=== PATIENT | male | born 1980 | race Caucasian/White ===

== ENCOUNTER 2018-07-01 14:39 | Emergency (ER) | payer SELFPAY ==
[2018-07-01 15:03] VITALS: BP 143/104
[2018-07-01] MEDS ORDERED: ACETAMINOPHEN 325 MG TABLET PO STA (15:57)
[2018-07-01 16:07] LABS: BASOPHILS % (AUTO) 0.5 %; EOSINOPHILS % (AUTO) 0.6 %; HGB - HEMOGLOBIN 16.4 g/dL (14.0-18.0); LYMPHOCYTES # (AUTO) 2.4 10^3/uL (1.5-3.5); LYMPHOCYTES % (AUTO) 35.9 %; MEAN CORPUSCULAR HEMOGLOBIN 31.5 pg (27.0-31.0); MEAN CORPUSCULAR HGB CONC 33.9 g/dL (32.0-36.0); MEAN CORPUSCULAR VOLUME 92.7 fL (80.0-94.0); MEAN PLATELET VOLUME 8.1 fL (7.4-11.4); MONOCYTES # (AUTO) 0.5 10^3/uL (0.0-1.0); MONOCYTES % (AUTO) 7.9 %; NEUTROPHILS # (AUTO) 3.7 10^3/uL (1.5-6.6); NEUTROPHILS % (AUTO) 55.1 %; PLT - PLATELET COUNT 353 10^3/uL (130-450); RED BLOOD COUNT 5.22 10^6/uL (4.70-6.10); RED CELL DISTRIBUTION WIDTH 13.7 % (12.0-15.0); WHITE BLOOD COUNT 6.7 x10^3/uL (4.8-10.8)
[2018-07-01 16:13] LABS: ALBUMIN 4.7 g/dL (3.2-5.5); ALBUMIN/GLOBULIN RATIO 1.1 (1.0-2.2); BILIRUBIN,TOTAL 0.3 mg/dL (0.2-1.0); CREATININE 0.7 mg/dL (0.6-1.2); TOTAL PROTEIN 8.9 g/dL (6.7-8.2)
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
== END 2018-07-01 16:55 | disposition left against medical advice (07) ==
LOC: ED 14:39
DX: Z53.20 Procedure and treatment not carried out because of patient's decision for unspecified reasons (principal); F10.129 Alcohol abuse with intoxication, unspecified; Y90.8 Blood alcohol level of 240 mg/100 ml or more; V59.9XXA Occupant (driver) (passenger) of pick-up truck or van injured in unspecified traffic accident, initial encounter; Y92.410 Unspecified street and highway as the place of occurrence of the external cause; I10 Essential (primary) hypertension; F17.200 Nicotine dependence, unspecified, uncomplicated
CPT/HCPCS: 36415; 70450; 80053; 80320; 83690; 85025; 99283

== ENCOUNTER 2019-01-30 10:38 | Outpatient (CLI) | payer MEDICAID | END 2019-01-30 10:39 | disposition critical access hospital (66) | LOC: EMS 10:38 | PROVIDERS: ATTEND Surgery | DX: R11.2 Nausea with vomiting, unspecified (principal); F41.9 Anxiety disorder, unspecified | CPT/HCPCS: A0425; A0427 ==

== ENCOUNTER 2019-01-30 11:03 | Emergency (ER) | payer MEDICAID ==
[2019-01-30] MEDS ORDERED: LIDOCAINE VISCOUS 2% 15 ML UDC MM STA (12:07)
[2019-01-30] MEDS ORDERED: PANTOPRAZOLE 40 MG TABLET PO STA (12:07)
[2019-01-30] MEDS ORDERED: LORazepam 2 MG/ML VIAL IVP STA (12:07)
[2019-01-30] MEDS ORDERED: MAG HYDROX/AL HYDROX/SIMETH 30 ML UDC PO STA (12:07)
--- NOTE | 2019-01-30 12:10 | ED Physician Documentation ---
History of Present Illness - Stated complaint Stated Complaint: SOA - Chief complaint Chief Complaint: Abd Pain - History obtained from History obtained from: Patient - History of Present Illness Timing: Last night (38-year-old gentleman with history of anxiety, reflux presents with shortness of breath and feeling like he is being choked that started last night during the process of being arrested for DUI. He says he has had these symptoms before he would usually take a Xanax for it, but his meds are in his car which is impounded and he cannot get to it. He denies any chest pain, no cough, no calf pain or pedal edema except for chronic calf ankle pain from a prior pilon fracture. He is also been vomiting because he is out of his Prilosec.) Review of Systems Constitutional: denies: Fever, Chills Nose: denies: Rhinorrhea / runny nose, Congestion Throat: reports: Sore throat Cardiac: denies: Chest pain / pressure, Palpitations Respiratory: reports: Dyspnea. denies: Cough PD PAST MEDICAL HISTORY - Past Medical History Past Medical History: Yes Cardiovascular: Hypertension Neuro: None GI: GERD HEENT: None Psych: Anxiety - Past Surgical History Past Surgical History: Yes Ortho: Other - Present Medications Home Medications: Ambulatory Orders Medication Instructions Recorded Confirmed Alprazolam [Xanax] 0.5 mg PO Q8HR PRN #5 tablet 03/01/16 01/30/19 Alprazolam [Xanax] 0.5 mg PO Q8H PRN #5 tablet 01/30/19 Omeprazole 20 mg PO DAILY 01/30/19 01/30/19 Omeprazole 20 mg PO DAILY #30 capsule. 01/30/19 - Allergies Allergies/Adverse Reactions: Allergies Allergy/AdvReac Type Severity Reaction Status Date / Time No Known Drug Allergies Allergy Verified 01/30/19 11:14 - Social History Does the pt smoke?: Yes Smoking Status: Current every day smoker Does the pt drink ETOH?: Yes Does the pt have substance abuse?: No - Immunizations Immunizations are current?: No Immunizations: TDAP current <10years - POLST Patient has POLST: No PD ED PE NORMAL - Vitals Vital signs reviewed: Yes - General General: Alert and oriented X 3, No acute distress - HEENT HEENT: Pharynx benign (But slightly hoarse voice) - Neck Neck: Supple, no meningeal sign, No bony TTP - Cardiac Cardiac: RRR, No murmur - Respiratory Respiratory: No respiratory distress, Clear bilaterally - Abdomen Abdomen: Non tender - Extremities Extremities: No edema, No calf tenderness / cord - Neuro Neuro: Alert and oriented X 3, Normal speech - Psych Psych: Other (Slightly anxious) Results - Vitals Vitals: Vital Signs - 24 hr 01/30/19 11:05 Temperature 36.8 C Heart Rate 112 H Respiratory 22 Rate Blood Pressure 143/125 H O2 Saturation 100 Oxygen O2 Source Room air PD MEDICAL DECISION MAKING - ED course ED course: This is a young man with anxiety and reflux who presents with an exacerbation of same due to being out of his medications, also some hoarse voice from the vomiting. He is administered a PPI, GI cocktail, and a milligram of Ativan IV. Departure - Departure Disposition: Home, Self Care Clinical Impression: Anxiety Condition: Good Record reviewed to determine appropriate education?: Yes Instructions: ED Panic Attack Prescriptions: Alprazolam [Xanax] 0.5 mg PO Q8H PRN #5 tablet PRN Reason: Anxiety Omeprazole 20 mg PO DAILY #30 capsule. Comments: Call your doctor to arrange a follow-up appointment, make the next available appointment. In the interim, return anytime if worse or if new symptoms develop. Your blood pressure was elevated today on check into the emergency department. This does not mean that you have hypertension, it is a common phenomenon to come to the emergency department and have elevated blood pressure. I recommend that you see your primary care physician within the week to have it rechecked when you are feeling better.
[2019-01-30 12:34] VITALS: BP 174/106
== END 2019-01-30 12:33 | disposition home or self-care (01) ==
LOC: EDUNIT# → ED 11:03
DX: F41.9 Anxiety disorder, unspecified (principal); K21.9 Gastro-esophageal reflux disease without esophagitis; I10 Essential (primary) hypertension; R11.10 Vomiting, unspecified; R49.0 Dysphonia; F17.200 Nicotine dependence, unspecified, uncomplicated
CPT/HCPCS: 96374; 99283; A9270; J2060

== ENCOUNTER 2020-05-10 06:35 | Inpatient (IN) | payer MEDICAID ==
--- NOTE | 2020-05-10 07:28 | ED Physician Documentation ---
PD HPI NVD - Stated complaint Stated Complaint: N/V, BODY ACHES - Chief complaint Chief Complaint: Abd Pain - History of Present Illness Timing - onset: How many days ago (4) Timing - duration: Days (4) Timing - details: Abrupt onset (Onset nausea vomiting and diarrhea 4 days ago. This was quite prominent for a day or 2 and then diarrhea has decreased but nausea and vomiting has continued. Feeling generally weak and muscle cramps and lightheaded, worsening today), Still present Associated symptoms: Abdominal pain (cramping intermittent. No continual pain.), Dizzy. No: Fever Contributing factors: Alcohol use. No: Sick contact, Bad food, Diabetes Improved by: No: Eating, Vomiting Worsened by: Eating Similar symptoms before: Has not had sx before Recently seen: Not recently seen Review of Systems Constitutional: reports: Myalgias (and muscle cramps the past day), Fatigue. denies: Fever Nose: denies: Rhinorrhea / runny nose, Congestion Throat: denies: Sore throat Cardiac: denies: Chest pain / pressure, Palpitations Respiratory: denies: Dyspnea, Cough GI: reports: Abdominal Pain (intermittent cramping, not continuous), Nausea, Vomiting (for 4 days), Diarrhea (most prominent the first 2 days, has decreased but still present.). denies: Hematemesis, Bloody / black stool Skin: denies: Rash, Lesions Musculoskeletal: denies: Neck pain, Back pain Neurologic: reports: Generalized weakness, Confused (feeling slow thinking), Headache (mild). denies: Near syncope PD PAST MEDICAL HISTORY - Past Medical History Past Medical History: Yes Cardiovascular: Hypertension Respiratory: None Neuro: None Endocrine/Autoimmune: None GI: GERD : None HEENT: None Psych: Anxiety Musculoskeletal: None Derm: None - Past Surgical History Past Surgical History: Yes Ortho: Other - Present Medications Home Medications: Ambulatory Orders Medication Instructions Recorded Confirmed Alprazolam [Xanax] 0.5 mg PO Q8HR PRN #5 tablet 03/01/16 01/30/19 Alprazolam [Xanax] 0.5 mg PO Q8H PRN #5 tablet 01/30/19 Omeprazole 20 mg PO DAILY 01/30/19 01/30/19 Omeprazole 20 mg PO DAILY #30 capsule. 01/30/19 - Allergies Allergies/Adverse Reactions: Allergies Allergy/AdvReac Type Severity Reaction Status Date / Time No Known Drug Allergies Allergy Verified 05/10/20 06:47 - Living Situation Living Situation: reports: Alone Living Arrangement: reports: At home - Social History Does the pt smoke?: Yes Smoking Status: Current every day smoker Does the pt drink ETOH?: Yes ETOH Use: Other (daily alcohol use, but had been "cutting back" on amount. Did drink a bit heavier this past weekend. ) Does the pt have substance abuse?: No - Immunizations Immunizations are current?: No Immunizations: TDAP current <10years - POLST Patient has POLST: No PD ED PE NORMAL - Vitals Vital signs reviewed: Yes - General General: Alert and oriented X 3, No acute distress, Well developed/nourished, Other (not shaky) - HEENT HEENT: Pharynx benign. No: Moist mucous membranes - Neck Neck: Supple, no meningeal sign, No adenopathy - Cardiac Cardiac: No: RRR (tachy but regular) - Respiratory Respiratory: Clear bilaterally - Abdomen Abdomen: Soft, Non tender, Non distended, No organomegaly. No: Normal bowel sounds (diminished) - Back Back: No CVA TTP - Derm Derm: Normal color, Warm and dry - Extremities Extremities: No tenderness to palpate, Normal ROM s pain, No edema, No calf tenderness / cord - Neuro Neuro: Alert and oriented X 3, No motor deficit, Normal speech Results - Vitals Vitals: Vital Signs - 24 hr 05/10/20 06:44 Temperature 36.7 C Heart Rate 128 H Respiratory 18 Rate Blood Pressure 122/70 O2 Saturation 98 Oxygen O2 Source Room air - Labs Labs: Laboratory Tests 05/10/20 05/10/20 07:54 07:54 WBC 8.3 RBC 3.60 L Hgb 12.7 L Hct 33.4 L MCV 92.8 MCH 35.3 H MCHC 38.0 H RDW 11.9 L Plt Count 144 MPV 9.3 Neut # (Auto) 5.5 Lymph # (Auto) 1.4 L Wake # (Auto) 1.0 Eos # (Auto) 0.3 Baso # (Auto) 0.1 Absolute Nucleated RBC 0.00 Nucleated RBC % 0.0 Manual Slide Review Indicated Platelet Estimate NORMAL (130-450,000) Platelet Morphology NORMAL APPEARANCE RBC Morph Micro Appear NORMAL APPEARANCE Sodium 119 L* Potassium 3.0 L Chloride 77 L* Carbon Dioxide 20 L Anion Gap 22.0 H BUN 19 Creatinine 2.0 H Estimated GFR (MDRD) 38 L Glucose 103 H Calcium 8.7 Magnesium 0.9 L* Total Bilirubin 1.1 H AST 79 H ALT 78 H Alkaline Phosphatase 65 Total Protein 7.6 Albumin 4.2 Globulin 3.4 Albumin/Globulin Ratio 1.2 Lipase 44 Ethyl Alcohol 58.8 PD MEDICAL DECISION MAKING - ED course Complexity details: reviewed results (Significant dehydration with elevated creatinine and also significant electrolyte disturbance with low potassium sodium and magnesium.), re-evaluated patient (He is doing okay at this time. Less nausea with the Zofran. We will watch and be wary of potential alcohol withdrawal as he does drink fairly regularly. No signs of that at this time.), considered differential (With the nausea vomiting and diarrhea, consider food poisoning or viral enteritis. Possible bacterial enteritis. There may be now some vomiting perpetuation with gastritis.), d/w patient Departure - Departure Disposition: 66 [facility] DC/Xfer Clinical Impression: Electrolyte disturbance, Dehydration, Hyponatremia Vomiting Qualifiers: Vomiting type: unspecified Vomiting Intractability: intractable Nausea presence: with nausea Qualified Code(s): R11.2 - Nausea with vomiting, unspecified Diarrhea Qualifiers: Diarrhea type: presumed infectious Qualified Code(s): R19.7 - Diarrhea, unspecified Condition: Stable Record reviewed to determine appropriate education?: Yes
[2020-05-10] MEDS ORDERED: SODIUM CHLORIDE 0.9% 1,000 ML IV STA (07:45)
[2020-05-10] MEDS ORDERED: ONDANSETRON 4 MG/2 ML VIAL IVP STA (07:45)
[2020-05-10] MEDS ORDERED: FAMOTIDINE 20 MG/2 ML SYRINGE IVP STA (07:45)
[2020-05-10] MEDS ORDERED: KETOROLAC 30 MG/ML VIAL IVP STA (07:45)
[2020-05-10 07:59] LABS: BASOPHILS # (AUTO) 0.1 10^3/uL (0.0-0.1); BASOPHILS % (AUTO) 0.8 %; EOSINOPHILS # (AUTO) 0.3 10^3/uL (0.0-0.7); EOSINOPHILS % (AUTO) 4.1 %; HGB - HEMOGLOBIN 12.7 g/dL (14.0-18.0); LYMPHOCYTES # (AUTO) 1.4 10^3/uL (1.5-3.5); MEAN CORPUSCULAR HEMOGLOBIN 35.3 pg (27.0-31.0); MEAN CORPUSCULAR VOLUME 92.8 fL (80.0-94.0); MEAN PLATELET VOLUME 9.3 fL (7.4-11.4); MONOCYTES % (AUTO) 11.9 %; NEUTROPHILS # (AUTO) 5.5 10^3/uL (1.5-6.6); NEUTROPHILS % (AUTO) 65.6 %; PLT - PLATELET COUNT 144 10^3/uL (130-450); RED CELL DISTRIBUTION WIDTH 11.9 % (12.0-15.0); WHITE BLOOD COUNT 8.3 x10^3/uL (4.8-10.8)
[2020-05-10 08:20] LABS: PLATELET ESTIMATE, MANUAL NORMAL (130-450,000) (NORMAL); PLATELET MORPHOLOGY NORMAL APPEARANCE (NORMAL); RBC MORPHOLOGY (MULTIPLE) NORMAL APPEARANCE (NORMAL)
[2020-05-10 08:22] LABS: ALBUMIN 4.2 g/dL (3.2-5.5); ALBUMIN/GLOBULIN RATIO 1.2 (1.0-2.2); BILIRUBIN,TOTAL 1.1 mg/dL (0.2-1.0); CALCIUM 8.7 mg/dL (8.5-10.3); TOTAL PROTEIN 7.6 g/dL (6.7-8.2)
[2020-05-10 08:23] LABS: MAGNESIUM 0.9 mg/dL (1.7-2.8)
[2020-05-10] MEDS ORDERED: POTASSIUM CHLOR 10 MEQ/100 ML 10 MEQ/100 ML BAG IV ONE ×2 (08:26→09:03)
[2020-05-10] MEDS ORDERED: MAGNESIUM SULFATE 2 GRAM 2 GM/50 ML BAG IV ONE ×2 (08:26→12:00)
[2020-05-10] MEDS ORDERED: LACTATED RINGERS 1,000 ML IV STA (08:36)
[2020-05-10] MEDS ORDERED: SODIUM CHLORIDE FLUSH 0.9% 10 ML SYRINGE IVP PRN (08:52)
[2020-05-10] MEDS ORDERED: MAGNESIUM SULFATE 1 GM/2 ML VIAL IVP STA (08:52)
[2020-05-10] MEDS ORDERED: ONDANSETRON 4 MG/2 ML VIAL IVP PRN (08:52)
[2020-05-10] MEDS ORDERED: SODIUM CHLORIDE 0.9% 1,000 ML IV SCH (09:00)
[2020-05-10] MEDS ORDERED: LORazepam 2 MG/ML VIAL IVP STA (09:08)
[2020-05-10] MEDS ORDERED: NS W/40 MEQ KCL 1,000 ML IV SCH (10:00)
[2020-05-10] MEDS: SODIUM CHLORIDE FLUSH 0.9% 10 ML SYRINGE IVP SCH ×2 (10:14→16:00)
[2020-05-10] MEDS ORDERED: LORazepam 1 MG TABLET PO PRN (11:46)
--- NOTE | 2020-05-10 12:00 | HISTORY & PHYSICAL EXAMINATION ---
Chief Complaint - Chief Complaint Chief Complaint: cant keep anything down , feels weak History of Present Illness - Admitted From Admitted From:: ED - History Obtained From Records Reviewed: ED records History obtained from: ED note and patient - History of Present Illness HPI Comment/Other: 40 year old male who lives in [place] ([facility]) is helping a friend here move presented with several days nausea, vomiting and found to have multiple el ectrolyte abnormalities (hypoK, hypomag, hypo Na 119) as well as volume depletion and JORGE A w/ Cr 2.0 BAL 58 PCP Rony Loza in [place] 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 He notes he has had heavy alcholhol i ntake for years. "black sheep of the family", Neither parent nor any of his 7 siblings have an alcohol problem. He tends to "binge" on weekends with a 5th of Vodka and a box-o-wine, but when he is not weekend binging he does tend to drink a 5th of vodka on other days. His PCP had been seeing him regularly and even prescribed librium 25 which he takes to avoid withdrawal on the days he does actually have work available. Re ETOH use, he does not go to counseling "doesnt work, I've done this so long", but PCP supportive. Moved next to a zoroastrian hoping that would help. Mandaen doesnt "allow" a girlfriend, so he denies a supportive partner. He has been admitted a few times for alcohol, last a few weeks ago, he denies ICU. No DUI's. . Got a ride to [employer]. He notes he withdrawals "all the time" and attributes his diarrhea and vomiting to withdrawal. (In the ED he evidently denied similar symptoms before) . This week he has felt progressively weaker, and nausea/ vomiting not improving. No blackouts. No hx hallucinations His PCP prescribed him HcTZ for blood pressure control and he has been taking as prescribed even while having nausea/vomiting / diarrhea. No hematemeiss, hematochezia nor melena and he is prescribed PO potassium as well. History - Past Medical History Cardiovascular: reports: Hypertension (his PCP had him on HCTZ) Respiratory: reports: None Neuro: reports: None Endocrine/Autoimmune: reports: None GI: reports: GERD : reports: None HEENT: reports: None Psych: reports: Anxiety Musculoskeletal: reports: None Derm: reports: None MRSA Hx?: No - Past Surgical History Ortho: reports: Other - Family & Social History Family History: Mother: Mental Illness (Mom is "crazy", ? bipolar, denies ETOH), Father: Parkinson's Disease Family History Comment/Other: 7 brothers and sisters, all healthy, he is not in touch with his parents Living arrangement: At home Living Situation: Alone Social History Notes: Lives alone, single, john with minimal work available currently. [facility] - Substance History Dependence: Experiences withdrawal or developed tolerances: Tobacco (smokes ~ 1/2 ppd), Alcohol (as per HPI) - POLST Patient has POLST: No POLST Status: Full Code (no illicit) Meds/Allgy - Home Medications Home Medications: Ambulatory Orders Medication Instructions Recorded Confirmed Omeprazole 20 mg PO DAILY #30 capsule. 01/30/19 05/11/20 Fluoxetine HCl 20 mg PO DAILY 05/11/20 05/11/20 Folic Acid 1 mg PO DAILY 05/11/20 05/11/20 chlordiazePOXIDE HCl 25 mg PO Q8H 05/11/20 05/11/20 [Chlordiazepoxide HCl] chlordiazePOXIDE [Librium] 25 mg PO Q8HR #9 capsule 05/11/20 cloNIDine HCL [Clonidine HCl] 0.1 mg PO TID 05/11/20 05/11/20 - Allergies Allergies/Adverse Reactions: Allergies Allergy/AdvReac Type Severity Reaction Status Date / Time No Known Drug Allergies Allergy Verified 05/10/20 06:47 Review of Systems - Constitutional Constitutional: reports: Poor appetite (as per HPI due to daily alcohol). denies: Weight gain, Weight loss - Eyes Eyes: denies: Field loss, Vision loss, Dipolpia - Ears, Nose & Throat Ears, Nose & Throat: reports: Other (no odynophagia, dysphagia). 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 denies: Cough, Sputum production, Wheezing - Gastrointestinal Gastrointestinal: reports: Other (as per HPI) - Genitourinary Genitourinary: denies: Dysuria, Frequency, Urgency - Musculoskeletal Musculoskeletal: reports: Muscle aches (generally weak and achy with electrolyte disturbance) - Neurological Neurological: denies: Seizures Exam - Vital Signs Reviewed Vital Signs: Yes Vital Signs: Vital Signs x48h Temp Pulse Pulse Resp BP BP Pulse Ox 05/10/20 10:19 36.8 C 91 16 130/79 100 05/10/20 06:44 36.7 C 128 H 18 122/70 98 - Physical Exam General Appearance: positive: No acute distress, Other (fatigued appearing man , nontoxic looking, awake alert, pleasant, nondiaphoretic, no tremor, alert, and oriented) Eyes Bilateral: positive: Normal inspection, EOMI, No scleral icterus ENT: positive: Dry mucous membranes (dry tongue,), Other (adequate dentition) Neck: negative: Lymphadenopathy (R), Lymphadenopathy (L), Stiff neck Respiratory: positive: Chest non-tender, No respiratory distress. negative: Breath sounds nml (scattered low pitched wheeze) Conclusion/Plan - Problem List (1) Hyponatremia Conclusion/Plan: Hypovolemic hyponatremia from GI losses, AND, some effect of chronic thiazide Does not sound like beer potomania given vodka, wine as primary ETOH (did have a few beers, shots yesterday) Volume repletion, recheck Na noon AFter 1 L NS wide in ED, at noon Na 120, continue at 100 cc / hr Hold HCTZ (will reach out to PCP tomorrow , will advise stop HCTz on discharge given daily ETOH use) qs neuro checks will recheck serum NA ~8pm (2) Intravascular volume depletion Conclusion/Plan: due to GI losses, and continued thiazide as prescribed during GI losses Continue volume repletion Tolerating PO now with antiemetic, advance diet (3) Acute kidney injury Conclusion/Plan: Creat 2.0 w/ reduced GFR in this 40 yo related to GI losses, volume depletion, and contribution of ACEI (40 mg daily lisinopril) Reeval after hydration (4) Electrolyte disturbance Conclusion/Plan: Hypokalemia and Hypomagnesemia; due to GI losses, vomiting , and diarrhea Replete IV and once tolerating PO, oral repletion recheck in am (5) Alcohol abuse Conclusion/Plan: Nearly daily ETOH use Is followed closely by PCP (as noted , even has librium 25 mg at home to avoid withdrawal and try to avoid drinking) CIWA protocol in additon to scheduled librium 25 mg (q 8 for now) (6) Reactive airway disease that is not asthma Conclusion/Plan: vs asthma patient has prn [id number] at home but not clear if has documented asthma or COPD scatteded low pitched wheeze plan prn albuterol MDI - Lab Results Fish Bones: 05/10/20 11:53 05/11/20 14:35 Other Lab Results: Admission bMP; Na 119, K 3.0 Cl 77 C02 20 BUn 19 Cr 2.0 Mag 09
[2020-05-10 12:01] LABS: BASOPHILS % (AUTO) 0.7 %; EOSINOPHILS # (AUTO) 0.3 10^3/uL (0.0-0.7); EOSINOPHILS % (AUTO) 5.1 %; HGB - HEMOGLOBIN 11.9 g/dL (14.0-18.0); LYMPHOCYTES # (AUTO) 1.3 10^3/uL (1.5-3.5); LYMPHOCYTES % (AUTO) 22.9 %; MEAN CORPUSCULAR HEMOGLOBIN 34.4 pg (27.0-31.0); MEAN CORPUSCULAR HGB CONC 36.3 g/dL (32.0-36.0); MEAN CORPUSCULAR VOLUME 94.8 fL (80.0-94.0); MEAN PLATELET VOLUME 9.6 fL (7.4-11.4); MONOCYTES # (AUTO) 0.7 10^3/uL (0.0-1.0); MONOCYTES % (AUTO) 12.3 %; NEUTROPHILS # (AUTO) 3.2 10^3/uL (1.5-6.6); NEUTROPHILS % (AUTO) 58.5 %; PLT - PLATELET COUNT 155 10^3/uL (130-450); RED BLOOD COUNT 3.46 10^6/uL (4.70-6.10); WHITE BLOOD COUNT 5.5 x10^3/uL (4.8-10.8)
[2020-05-10] MEDS: MULTIVITAMIN TABLET PO SCH (12:04)
[2020-05-10] MEDS: FOLIC ACID 1 MG TABLET PO SCH (12:04)
[2020-05-10] MEDS: THIAMINE 100 MG TABLET PO SCH (12:04)
[2020-05-10 12:10] LABS: CALCIUM 8.2 mg/dL (8.5-10.3); CREATININE 1.9 mg/dL (0.6-1.2)
[2020-05-10] MEDS: chlordiazePOXIDE 25 MG CAPSULE PO SCH ×2 (12:50→21:27)
[2020-05-10] MEDS ORDERED: ALBUTEROL 1 PUFF INH PRN (14:59)
[2020-05-10] MEDS: POTASSIUM CHLORIDE 20 MEQ TABLET PO SCH ×2 (15:59→21:27)
[2020-05-10] MEDS: NS W/20 MEQ KCL 1,000 ML IV SCH (21:27)
[2020-05-11] MEDS: SODIUM CHLORIDE FLUSH 0.9% 10 ML SYRINGE IVP SCH ×2 (03:21→09:54)
[2020-05-11 05:44] LABS: CALCIUM 8.5 mg/dL (8.5-10.3); CREATININE 1.2 mg/dL (0.6-1.2)
[2020-05-11] MEDS: chlordiazePOXIDE 25 MG CAPSULE PO SCH ×2 (06:05→14:20)
[2020-05-11] MEDS: NS W/20 MEQ KCL 1,000 ML IV SCH (07:29)
[2020-05-11] MEDS ORDERED: MAGNESIUM SULFATE 1 GM/2 ML VIAL IVP ONE (09:14)
[2020-05-11] MEDS ORDERED: MAGNESIUM SULFATE 2 GRAM 2 GM/50 ML BAG IV ONE (10:00)
[2020-05-11] MEDS: MULTIVITAMIN TABLET PO SCH (10:11)
[2020-05-11] MEDS: FOLIC ACID 1 MG TABLET PO SCH (10:11)
[2020-05-11] MEDS: POTASSIUM CHLORIDE 20 MEQ TABLET PO SCH (10:12)
[2020-05-11] MEDS: THIAMINE 100 MG TABLET PO SCH (10:12)
--- NOTE | 2020-05-11 10:55 | Discharge Plan ---
Discharge Plan Problem Reviewed?: Yes Disposition: Home, Self Care Condition: Stable Prescriptions: chlordiazePOXIDE [Librium] 25 mg PO Q8HR #9 capsule Diet: Regular (Do not drink excessive amounts of water right now, pedialyte or gatorade would help add salt) Activity Restrictions: No Restrictions Shower Restrictions: No Driving Restrictions: No Health Concerns: 1)Hyponatremia ; very low sodium of 119 (normal over 135) due to intravascular volume depletion/dehydration from vomiting and diarrhea, and HCTZ, and not enough solid food intake (if drinking much beer) Improved to 126 by 8 am, and 132 at 2:30 pm. It is dangerous to bring up the sodium too quickly so you were given "gentle" repletion with saline, and it is slowly improving Do not drink excessive amounts of water, gatorade would be better than water for a day or 2 and eat regular diet STOP HCTZ (if your PCP represcribes for blood pressure, DO NOT take if you have vomiting and diarrhea NO ALCOHOL 2) Acute kidney injury, low fluid intake (vomit/diarrhea losses), and HCTZ combined with lisinopril had your kidneys very dry (creatinine 2.0 which is high for a 40 year old) It is improving / Creatinine 1.2 on 05/11 (which is still high for you) and 14/1.1 at 2:30 pm PCP should recheck to ensure return to baseline 3) low potassium (due to loss from vomiting, diarrhea and hCTZ) it was increased with IV and oral potassium. Take your daily potassium pills 20 meq (3.8 on morning of discharge) that you have with you PCP should recheck (it should improve off HCTZ) Improved to 4.5 on discharge. 4) Alcohol abuse To avoid withdrawal and to reduce risk that you will start drinking on discharge, take your Librium 25 mg every 8 hrs, x 2 more days, then reduce to 25 mg every 12 hours. An additional 9 libriums are prescribed (Contact Dr Loza ). Hard copy prescription (was unable to transmit to Gianluca) TRY to find a support group with someone in your same situation to help not resume drinking. You may not have been matched up with a good counselor or support person in the past. Counseling is essential to help stop drinking. 5) Hypertension; your blood pressure today is 132/80 , 132 / 73 which is fine Hold your lisinopril until you follow up with Dr Loza. Follow up with PCP STop HCTZ as above Additional Instructions or Follow Up instructions: Contact Dr Loza on Thursday to get labs rechecked to ensure return to normal Keep in close contact with him, as it sounds like he is helpful with your alcohol problem No Smoking: If you smoke, Please STOP! Call for help. Follow-up with: KEISHA LOZA, [Primary Care Provider] -
--- NOTE | 2020-05-11 12:29 | PHARMACY PROGRESS NOTE ---
- Best Possible Medication History Admit Date and Time: 05/10/20 0852 Processed by: Pharmacy Medication History completed: Yes Patient Interview: Completed Secondary Source(s): Pharmacy records, Insurance records (PATIENT ABLE TO CONFIRM SOME HOME MEDICATIONS. SEVERAL VERIFIED THROUGH INSURANCE RECORDS ) As the person ultimately responsible for medication therapy, providers are able to order a medication from an existing home medication list in [facility] via the "Reconcile Routine" prior to Confirmation of that medication by learning support specialist. Such practice is discouraged except when the physician, in their clinical judgment, deems that a medical need exists for a medication without regard to previous use.
[2020-05-11] MEDS ORDERED: SODIUM CHLORIDE 0.9% 1,000 ML IV SCH (14:00)
[2020-05-11 14:46] LABS: CALCIUM 9.3 mg/dL (8.5-10.3); CREATININE 1.1 mg/dL (0.6-1.2)
[2020-05-11 16:13] VITALS: BP 142/97
--- NOTE | 2020-05-11 20:05 | DISCHARGE SUMMARY ---
Physician: ALE Lara DATE OF ADMISSION: 05/10/2020 DATE OF DISCHARGE: 05/11/2020 PRIMARY CARE PHYSICIAN: Rony Loza MD, in [place], [place]. PRIMARY DISCHARGE DIAGNOSES 1. Acute kidney injury. 2. Hyponatremia. 3. Intravascular volume depletion. 4. Hypomagnesemia. 5. Acute alcohol intoxication. 6. Alcohol abuse. CONSULTATIONS: None. PROCEDURES: None. DIAGNOSTIC STUDIES Admission sodium 119, this is improved to 132 by time of discharge. Potassium 3.0 on admission, 4.5 on discharge, magnesium 0.9 on admission, 1.6 on the morning of discharge that does not yet reflect another 2 grams of IV magnesium, chloride was 77 on admission, 98 on discharge. BUN and creatinine were 19 and 2.0 on admission, respectively. At the time of discharge, BUN and creatinine are 14 and 1.1. GFR improved from 38 on admission to 75 on discharge. AST and ALT were 79 and 78 on admission. Ethyl alcohol on admission was 58.8. CBC: White count 8.3, hemoglobin and hematocrit 12.7 and 33, respectively, platelet count 144. On discharge, white count 5.5, hemoglobin and hematocrit 12 and 33, platelets 155,000. HPI Briefly, patient is a 40-year-old male who has a marked alcohol abuse. He drinks at least a fifth of vodka on the days he does not find work. On the weekends, he often binges with a box of wine in addition to that. Alternatively he may have shots or beer. He notes that he is often having symptoms of withdrawal, on days when he works and cannot drink, for which his primary provider prescribed him Librium 25 mg tablets for prn use to try to avoid alcohol. He had symptoms of what he describes as what he describes as withdraw early in the week with nausea, vomiting, and diarrhea. He felt progressively weaker and presented to the [facility] emergency room, where he was found to have marked volume depletion and acute kidney injury with a BUN and creatinine of 59 and 2.0, hyponatremia with a sodium of 119. Hypokalemia with K of 5.0 and magnesium of 0.9. Of note, he was taking thiazide as well at home, which was prescribed for hypertension, which contributed to his hypokalemia and hypovolemia. Also, he is on an BOY inhibitor at home, which likely contributed to the acute kidney injury. BRIEF HOSPITAL COURSE 1. Intravascular volume depletion and hyponatremia. He was hydrated gently with a slow improvement in his sodium. At the time of discharge, ~ 4p 05/11 it was 132. His potassium improved from 3.0 to 4.5 at time of discharge. He does have potassium tablets available, and he did receive an additional 2 grams of magnesium at the time of discharge. he is advised to hold off on his HCTZ entirely. Given this acute problem, and the unfortunatel liklihood that it will recur, would recommend not resuming HCTZ. He is advised to hold off on his BOY inhibitor until his blood pressure and his renal function are rechecked with improvement. ACEI alone likely safe antihypertensive in this 40-year-old but he was advised to not take if vomiting or diarrhea. 2. Heavy alcohol use. Patient denies that the counseling has been of any use to him although he wants very much to not drink. He is advised though to try to find a well-matched counselor to help him avoid alcohol. He is very motivated to do so. He does have Librium available at the time of discharge. An additional 9 tablets were prescribed in addition to the 8 that he already has at home to take every 8 hours instead of reaching for alcohol. Ideally would have close followup with his primary care provider, who it sounds like knows him well, and hopefully he will find a counselor with whom he has a good match to help him achieve sobriety. DISCHARGE MEDICATIONS 1. stop HCTZ. 2. hold off on his lisinopril 40 mg daily until he sees his primary provider. 3. Potassium Chloride 20 meq He had approximately 7 of his 20 mEq tablets of his home potassium chloride available, he can take those daily for the next 7 days. 4. fluoxetine 20 mg once daily. 5. Omeprazole 20 mg once daily. 6. Clonidine 0.1 mg p.o. t.i.d. p.r.n. 7. Folic acid 1 mg daily. 8. He is advised to take an OTC multivitamin daily. DISCHARGE PHYSICAL EXAM VITAL SIGNS: He was afebrile, 36.9, heart rate 74-85, blood pressure 132-142 over 88-97, room air oxygenation 99%. GENERAL: Patient is a robust-appearing young man who is very pleasant and cooperative. He has no visible diaphoresis or tremors. He is alert and oriented, appropriate, and cooperative. HEAD, EYES, NOSE, AND THROAT: His extraocular movements are intact. anicteric sclerae. He swallows without difficulty. SKIN: Color is unremarkable. CHEST: Clear to auscultation with unlabored respirations. Heart is regular S1, S2 with no appreciable extra sounds. Periphery has no edema. ABDOMEN: Generous with no appreciable organomegaly and specifically no right upper quadrant tenderness. No suprapubic tenderness. NEUROLOGIC: Patient's gait is unremarkable, and he is up and about in the room without difficulty. FOLLOWUP: Patient should follow up with his primary provider, Dr. Rony Loza, in 1 week for followup and to again reinforce the need to obtain counseling. cc: Rony Loza DO TD: 05/11/2020 17:37 MTDD
== END 2020-05-11 16:00 | disposition home or self-care (01) | DRG 683 ==
LOC: ED 06:35 → MS3 08:52
PROVIDERS: ADMIT Nurse Practitioner; ATTEND Nurse Practitioner
DX: N17.9 Acute kidney failure, unspecified (principal); E87.1 Hypo-osmolality and hyponatremia; E83.42 Hypomagnesemia; F10.129 Alcohol abuse with intoxication, unspecified; E87.6 Hypokalemia; T50.2X Poisoning by, adverse effect of and underdosing of carbonic-anhydrase inhibitors, benzothiadiazides and other diuretics; T46.5X Poisoning by, adverse effect of and underdosing of other antihypertensive drugs; I10 Essential (primary) hypertension; F17.210 Nicotine dependence, cigarettes, uncomplicated; E86.1 Hypovolemia; Z79.899 Other long term (current) drug therapy; J45.909 Unspecified asthma, uncomplicated
CPT/HCPCS: 36415; 80048; 80053; 80320; 83690; 83735; 84295; 85025; 94640; 96374; 99284; 99285; A9270; J2060; J7120